=== PATIENT | male | born 1960 | race Caucasian/White ===

== ENCOUNTER 2017-06-23 08:19 | Emergency (ER) | payer SELFPAY ==
[2017-06-23] MEDS ORDERED: Ondansetron 4 MG/2 ML SDV IVPUSH ONE (08:24)
[2017-06-23] MEDS ORDERED: Sodium Chloride 0.9% 10 ML Syringe FLUSH PRN (08:24)
[2017-06-23] MEDS ORDERED: Sodium Chloride 0.9% 1,000 ML IV SCH (08:30)
--- NOTE | 2017-06-23 08:40 | EDM.PDOC ---
ED HPI GENERAL MEDICAL PROBLEM - General Chief Complaint: Neurological Problem Stated Complaint: SYNCOPE Time Seen by Provider: 06/23/17 08:23 Source of Information: Reports: Patient History Limitations: Reports: No Limitations - History of Present Illness INITIAL COMMENTS - FREE TEXT/NARRATIVE: The patient presents with dizziness. He woke up this morning with it. He says he is off balance and the room is off. He also has a slight headache. He denies ear pain, tinnitus, or hearing loss. He has no fever, chills, cough, congestion, runny nose, chest pain, or abdominal pain. He has nausea and he vomited twice. He has never had this before. He has no heart problems. He denies numbness or weakness. Onset: Gradual Duration: Hour(s): Location: Reports: Head Quality: Reports: Ache Severity: Mild Improves with: Reports: Immobilization Worsens with: Reports: Movement Context: Reports: Activity (This started this morning when he woke up) Associated Symptoms: Reports: Headaches, Nausea/Vomiting. Denies: Chest Pain, Cough, Fever/Chills, Shortness of Breath - Related Data Allergies Allergy/AdvReac Type Severity Reaction Status Date / Time No Known Allergies Allergy Verified 06/23/17 09:25 Home Meds: Home Meds Amoxicillin 1,000 mg PO BID #40 tab 06/23/17 [Rx] Meclizine [Antivert] 25 mg PO Q6H PRN #30 tab 06/23/17 [Rx] Ondansetron [Zofran ODT] 4 mg PO Q6H PRN #20 tab.dis 06/23/17 [Rx] Past Medical History - Past Health History Medical/Surgical History: Denies Medical/Surgical History Oncologic (Cancer) History: Reports: Basal Cell Carcinoma Social & Family History - Tobacco Use Smoking Status *Q: Never Smoker Second Hand Smoke Exposure: No - Caffeine Use Caffeine Use: Reports: None - Recreational Drug Use Recreational Drug Use: No ED ROS GENERAL - Review of Systems Review Of Systems: See Below Constitutional: Reports: No Symptoms HEENT: Reports: No Symptoms Respiratory: Reports: No Symptoms Cardiovascular: Reports: No Symptoms Endocrine: Reports: No Symptoms GI/Abdominal: Reports: Nausea, Vomiting. Denies: Abdominal Pain, Diarrhea : Reports: No Symptoms Musculoskeletal: Reports: No Symptoms Skin: Reports: No Symptoms Neurological: Reports: Dizziness (Off balance), Headache ED EXAM, NEURO - Physical Exam Exam: See Below Exam Limited By: No Limitations General Appearance: Alert, No Apparent Distress Eye Exam: Left Eye: Nystagmus, Bilateral Eye: EOMI, PERRL Ears: Normal External Exam, Normal Canal, Normal TMs Nose: Normal Inspection Head Exam: Atraumatic, Normocephalic Neck: Normal Inspection Respiratory/Chest: No Respiratory Distress, Lungs Clear, Normal Breath Sounds Cardiovascular: Regular Rate, Rhythm, No Edema, No Murmur GI/Abdominal: Soft, Non-Tender, No Organomegaly, No Mass Neurological: Alert, No Motor/Sensory Deficits, Oriented x 3 Back Exam: Normal Inspection Extremities: Normal Inspection EKG INTERPRETATION EKG Date: 06/23/17 Time: 08:34 Rhythm: NSR Rate (Beats/Min): 85 [place]: Normal P-Wave: Present QRS: Normal ST-T: Normal Course - Vital Signs Last Recorded V/S: Last Vital Signs Temp 97 F 06/23/17 08:21 Pulse 87 06/23/17 08:21 Resp 19 06/23/17 08:21 BP 145/76 H 06/23/17 08:21 Pulse Ox 97 06/23/17 08:21 - Orders/Labs/Meds Orders: Active Orders 24 hr Category Date Time Status Cardiac Monitoring [RC] . DIRECTED Care 06/23/17 08:24 Active EKG Documentation Completion [RC] STAT Care 06/23/17 08:24 Active Peripheral IV Care [RC] . DIRECTED Care 06/23/17 08:24 Active Sodium Chloride 0.9% [Normal Saline] 1,000 ml Med 06/23/17 08:30 Active IV ASDIRECTED Sodium Chloride 0.9% [Saline Flush] Med 06/23/17 08:24 Active 10 ml FLUSH ASDIRECTED PRN ED Antiemetic Medication Reflex [OM.PC] Stat Oth 06/23/17 08:24 Ordered Peripheral IV Insertion Adult [OM.PC] Stat Oth 06/23/17 08:24 Ordered Medication Orders Sodium Chloride (Normal Saline) 1,000 mls @ 125 mls/hr IV ASDIRECTED BARBIE Last Admin: 06/23/17 08:30 Dose: 125 mls/hr Sodium Chloride (Saline Flush) 10 ml FLUSH ASDIRECTED PRN PRN Reason: Keep Vein Open Last Admin: 06/23/17 08:30 Dose: 10 ml Labs: Laboratory Tests 06/23/17 06/23/17 Range/Units 08:25 08:25 WBC 12.37 H (4.23-9.07) K/mm3 RBC 5.39 (4.63-6.08) M/mm3 Hgb 16.0 (13.7-17.5) gm/L Hct 44.6 (40.1-51.0) % MCV 82.7 (79.0-92.2) fl MCH 29.7 (25.7-32.2) pg MCHC 35.9 H (32.2-35.5) g/dl RDW Std Deviation 38.1 (35.1-43.9) fL Plt Count 207 (163-337) K/mm3 MPV 9.8 (9.4-12.3) fl Neut % (Auto) 86.8 H (34.0-67.9) % Lymph % (Auto) 5.9 L (21.8-53.1) % Coffee % (Auto) 6.9 (5.3-12.2) % Eos % (Auto) 0.1 L (0.8-7.0) Baso % (Auto) 0.1 (0.1-1.2) % Neut # (Auto) 10.74 H (1.78-5.38) K/mm3 Lymph # (Auto) 0.73 L (1.32-3.57) K/mm3 Coffee # (Auto) 0.85 H (0.30-0.82) K/mm3 Eos # (Auto) 0.01 L (0.04-0.54) K/mm3 Baso # (Auto) 0.01 (0.01-0.08) K/mm3 Manual Slide Review Abnormal smear Sodium 141 (136-145) mEq/L Potassium 4.0 (3.5-5.1) mEq/L Chloride 103 (98-107) mEq/L Carbon Dioxide 23 (21-32) mEq/L Anion Gap 19.0 H (5-15) BUN 11 (7-18) mg/dL Creatinine 1.1 (0.7-1.3) mg/dL Est Cr Clr Drug Dosing 75.88 mL/min Estimated GFR (MDRD) > 60 (>60) mL/min BUN/Creatinine Ratio 10.0 L (14-18) Glucose 192 H (74-106) mg/dL Calcium 9.0 (8.5-10.1) mg/dL Total Bilirubin 0.7 (0.2-1.0) mg/dL AST 22 (15-37) U/L ALT 33 (16-63) U/L Alkaline Phosphatase 84 (46-116) U/L Troponin I < 0.017 (0.00-0.056) ng/mL Total Protein 8.0 (6.4-8.2) g/dl Albumin 3.9 (3.4-5.0) g/dl Globulin 4.1 gm/dL Albumin/Globulin Ratio 1.0 (1-2) Meds: Medications Generic Name Dose Route Start Last Admin Trade Name Freq PRN Reason Stop Dose Admin Sodium Chloride 1,000 mls @ 125 mls/hr 06/23/17 08:30 06/23/17 08:30 Normal Saline IV 125 mls/hr ASDIRECTED BARBIE Administration Sodium Chloride 10 ml 06/23/17 08:24 06/23/17 08:30 Saline Flush FLUSH 10 ml ASDIRECTED PRN Administration Keep Vein Open Discontinued Medications Generic Name Dose Route Start Last Admin Trade Name Freq PRN Reason Stop Dose Admin Meclizine HCl 25 mg 06/23/17 08:25 06/23/17 08:31 Antivert PO 06/23/17 08:26 25 mg ONETIME ONE Administration Ondansetron HCl 4 mg 06/23/17 08:24 06/23/17 08:31 Zofran IVPUSH 06/23/17 08:25 4 mg ONETIME ONE Administration - Re-Assessments/Exams Free Text/Narrative Re-Assessment/Exam: 06/23/17 08:45 I ordered an IV NS at 125mL/hr, zofran 4mg IV, antivert 25mg PO, labs, EKG and a CT of his head. 06/23/17 09:39 He feels better. His WBC was elevated at 12.37. His anion gap was elevated at 19. His glucose was elevated at 197. His troponin was negative. His EKG shows a NSR with no acute changes. The CT of his head shows sinusitis with no bleed. He does admit to having congestion and runny nose. I feel he does have sinusitis with vertigo. I will get him on amoxicillin and some antivert. He may also take some pseudaphed. Departure - Departure Time of Disposition: 09:45 Disposition: Home, Self-Care 01 Condition: Good Clinical Impression: Vertigo Sinusitis Qualifiers: Sinusitis location: unspecified location Chronicity: acute Recurrence: non- recurrent Qualified Code(s): J01.90 - Acute sinusitis, unspecified - Discharge Information Prescriptions: Amoxicillin 1,000 mg PO BID #40 tab Meclizine [Antivert] 25 mg PO Q6H PRN #30 tab PRN Reason: Dizziness Ondansetron [Zofran ODT] 4 mg PO Q6H PRN #20 tab.dis PRN Reason: Nausea\vomiting Referrals: PCP,Unknown [Ordering Only Provider] - Phan Walsh [Physician] - 1 Week Forms: ED Department Discharge Additional Instructions: Take the amoxicillin 1,000mg 2 times per day for 10 days. Take the zofran every 6 hours as needed for nausea and vomiting. Take the antivert every 6 hours as needed for dizziness. You may also try some pseudophed. Please return if you are worse or follow up for Dr Walsh. - My Orders Last 24 Hours: My Active Orders 06/23/17 08:24 Cardiac Monitoring [RC] . DIRECTED EKG Documentation Completion [RC] STAT Peripheral IV Care [RC] . DIRECTED Sodium Chloride 0.9% [Saline Flush] 10 ml FLUSH ASDIRECTED PRN ED Antiemetic Medication Reflex [OM.PC] Stat Peripheral IV Insertion Adult [OM.PC] Stat 06/23/17 08:30 Sodium Chloride 0.9% [Normal Saline] 1,000 ml IV ASDIRECTED - Assessment/Plan Last 24 Hours: My Active Orders 06/23/17 08:24 Cardiac Monitoring [RC] . DIRECTED EKG Documentation Completion [RC] STAT Peripheral IV Care [RC] . DIRECTED Sodium Chloride 0.9% [Saline Flush] 10 ml FLUSH ASDIRECTED PRN ED Antiemetic Medication Reflex [OM.PC] Stat Peripheral IV Insertion Adult [OM.PC] Stat 06/23/17 08:30 Sodium Chloride 0.9% [Normal Saline] 1,000 ml IV ASDIRECTED
--- NOTE | 2017-06-23 08:56 | CT ---
Head CT Technique: Multiple axial sections through the brain were obtained. Intravenous contrast was not utilized. Comparison: No previous intracranial imaging. Findings: Ventricles along with basal cisterns and sulci over the convexities are mildly prominent. No abnormal parenchymal densities are seen. No evidence of intracranial hemorrhage. No midline shift or mass effect is seen. Opacified right maxillary sinus is seen. Near opacified right frontal sinus is noted. Moderate mucosal thickening is seen within the right ethmoid sinus and left maxillary sinus. Mild mucosal thickening seen within the left ethmoid sinus. Sphenoid sinuses are clear. Visualized mastoid sinuses are clear. No acute calvarial abnormality is seen. Impression: 1. Prominent mucosal thickening within the paranasal sinuses as noted above. Uncertain if findings are acute or due to chronic sinusitis. 2. Mild generalized atrophy. No acute intracranial abnormality is identified. Diagnostic code #3
[2017-06-23] MEDS ORDERED: Amoxicillin 500 MG Cap PO ONE (13:50)
== END 2017-06-23 15:31 | disposition home or self-care (01) ==
LOC: JD.ED 08:19
DX: R42 Dizziness and giddiness (principal); J01.90 Acute sinusitis, unspecified
CPT/HCPCS: 36415; 70450; 80053; 84484; 85025; 93005; 96361; 96374; 96375; 99285; A9270; J2405; J3360; J7040; J7050; 93010; 99284-25